=== PATIENT | male | born 1965 | race Caucasian/White ===

== ENCOUNTER 2025-02-03 18:36 | Emergency (ER) | payer BC, SELFPAY ==
--- NOTE | ~2025-02-03 | XR_ITS ---
CHEST RADIOGRAPH, PA AND LATERAL CLINICAL HISTORY: cough fever and wheezing x 3 days . COMPARISON: None available TECHNIQUE: PA and lateral views of the chest. FINDINGS The cardiomediastinal silhouette is unremarkable. Peribronchial thickening is identified. No focal infiltrate is noted. IMPRESSION: Peribronchial thickening, without focal infiltrate or effusion. Reviewed, dictated and finalized at location A.
[2025-02-03 19:02] VITALS: BP 107/60; PULSE 93; RESP 20; TEMP 37.9; O2SAT 96
--- NOTE | 2025-02-03 19:05 | ED.URI ---
HPI - URI/Sore Throat General Chief Complaint: Upper Respiratory Infection Stated Complaint: congestion / cough Time Seen by Provider: 02/03/25 19:05 Source: patient, RN notes reviewed and old records reviewed Mode of arrival: ambulatory Limitations: no limitations History of Present Illness HPI Narrative: 5-year-old male presents to the [facility] with cough, congestion, symptoms getting worse since Monday, 3 days. Has taken [place] cold and flu. Treatments prior to arrival: cold medicine Related Data Allergies Allergy/AdvReac Type Severity Reaction Status Date / Time Sulfa (Sulfonamide Allergy Mild Rash Verified 02/03/25 19:24 Antibiotics) Review of Systems Review of Systems: All systems reviewed & are unremarkable except as noted in HPI and below Constitutional: Constitutional: Reports as per HPI, Reports body ache(s), Reports fatigue and Reports fever(s) ENT: Reports system reviewed and no additional complaints, except as documented Cardiovascular: Cardiovascular: Reports no additional cardiovascular complaints, Denies chest pain and Denies dyspnea Respiratory: Respiratory: Reports as per HPI, Reports chest congestion, Reports cough and Denies dyspnea Musculoskeletal: Musculoskeletal: Reports no additional musculoskeletal complaints Integumentary/Breasts: Skin/Breast: Reports system reviewed and no additional complaints, except as docu PMFSH Comments At the time of my signature, I reviewed and agree with the nursing past medical, surgical, social, and family history. There is no relevant family history pertinent to the patient complaint. Exam Const: General: cooperative, healthy appearing, comfortable, no acute distress, well developed, alert and well nourished Nutritional Appearance: well nourished Orientation/consciousness: patient oriented x3 Limitations: no limitations HENMT: Head: normal to inspection Ears: hearing grossly normal bilaterally, external ears normal, TM's normal bilaterally, EAC's normal, mastoids normal and no periauricular adenopathy Mouth: Yes Normal oral and palatal mucosa present, Yes lip normal, Yes tongue normal and Yes moist mucous membranes Throat: posterior oropharynx normal, uvula midline and no uvular edema Eyes: General: appearance normal, both eyes and all related structures Alignment and Position: alignment normal Neck: Neck: normal visual inspection, full ROM, no lymphadenopathy and no meningeal signs Chest: Chest palpation & inspection: normal inspection of the chest Resp: Effort & Inspection: normal respiratory effort and able to speak in complete sentences Auscultation: no crackles, no rales, no rhonchi and wheezes expiratory wheezes and left lower Cardio: Rate: regular rate Skin: General skin exam: normal color and no rashes or lesions noted Neuro: General: patient oriented x3, gait normal, moves all extremities and no meningeal signs Cognition (Neuro): normal cognition Speech: normal speech Gait exam (Neuro): Normal gait present Extrem: General: normal to inspection, full ROM, capillary refill normal and normal gait Psych: Appearance: grossly normal and well kempt Mental Status: mental status grossly normal Speech and movement: Normal speech and movement present and Clear speech present Affect: normal affect Attitude: cooperative Course Course Level of Care: Express Care Visit Vital Signs Vital signs: Vital Signs Temperature 100.2 F H 02/03/25 19:02 Pulse Rate 93 02/03/25 19:02 Respiratory Rate 20 02/03/25 19:02 Blood Pressure 107/60 02/03/25 19:02 Pulse Oximetry 96 02/03/25 19:02 Oxygen Delivery Room Air 02/03/25 19:02 Temperature 100.2 F H 02/03/25 19:02 Pulse Rate 93 02/03/25 19:02 Respiratory Rate 20 02/03/25 19:02 Blood Pressure 107/60 02/03/25 19:02 Pulse Oximetry 96 02/03/25 19:02 Oxygen Delivery Room Air 02/03/25 19:02 Reviewed MDM - URI/Sore Throat MDM Narrative Medical decision making narrative: Patient sitting in exam room, nontoxic. Patient has a a low-grade fever. Otherwise vitals stable. Patient presents with 3 day history of cough, congestion. Flu A positive, COVID and chest x-ray negative. Patient appropriate for outpatient treatment and follow-up Discharge instructions reviewed with patient, as well as provided in writing per nursing staff. The instructions also include specific and strict return/GO TO THE ER as well as f/u information. All questions have been answered, and the patient deny any further questions with discharge and discharge plan. Some parts of this dictation were generated by voice recognition software and may contain typographical and/or grammatical inaccuracies. Differential Diagnosis Differential diagnosis: Likely upper respiratory infection, otitis media, sinusitis, viral infection, bronchitis and influenza Lab Data Labs: Lab Results 02/03/25 Range/Units 19:28 POC Influenza A Ag Positive (Negative) POC Influenza B Ag Negative (Negative) POC SARS CoV-2 Ag Negative (Negative) Reviewed reviewed Imaging Data Radiologist's impression: CHEST RADIOGRAPH, PA AND LATERAL CLINICAL HISTORY: cough fever and wheezing x 3 days . COMPARISON: None available TECHNIQUE: PA and lateral views of the chest. FINDINGS The cardiomediastinal silhouette is unremarkable. Peribronchial thickening is identified. No focal infiltrate is noted. IMPRESSION: Peribronchial thickening, without focal infiltrate or effusion. Critical Care Time Critical Care Time Critical Care Time: No Discharge Plan Discharge Clinical Impression: Influenza A Patient Disposition: Home, Self-Care Condition: Stable Instructions: Antibiotic Form, Influenza (DC) Additional Instructions: Your rapid COVID test were negative Your rapid flu test was positive for influenza A Your x-ray showed no signs of pneumonia Your symptoms are likely due to a viral illness, which is not treated with antibiotics. Typically viral infections last 7-10 days, can linger for couple of weeks. It is very important to treat your symptoms. Drink plenty of water, Gatorade, Pedialyte, ice pops or Jell-O. -Alternate Tylenol and Motrin per package directions for fever or pain. You can alternate every 4 hours -Antihistamine medication such as Zyrtec/Claritin/Kate during the day can help improve symptoms. -doing daily nasal irrigations can help relieve pressure your sinuses. Things like a Neti pot -Use Flonase twice a day for 5 days then daily to help reduce the inflammation and dry up your sinuses. -You can also use Mucinex. Be sure to drink plenty of water with this medication at least 8 ounces with every dose and it is important to drink 8 to 10 glasses of water per day. Water is a natural decongestant -Eat and drink things that are easy to swallow, like tea or soup, or popsicles. -Oral rinses such as: Salt water gargles and/or may use topical anesthetic (eg. Chloraseptic spray) or lozenges to relieve dryness or throat pain). -Frequent hand washing or hand director of strategic alliances is one of the best ways to prevent spread of infection. -Using a vaporizer or humidifier at night will also help thin secretions and help with coughing up phlegm. -Follow up with primary care provider in 7-10 days if condition is not improving - For new or worsening symptoms go directly to the nearest ER Patient Language: Georgian Prescriptions: New albuterol sulfate 90 mcg/actuation HFA aerosol inhaler 2 puff inhalation QID PRN (Reason: shortness of breath or wheezing) Qty: 6.7 0RF (DME) Aerochamber MV Spacer See Rx Instructions .Route Qty: 1 0RF Rx Instructions: As directed Follow-up/Referrals: Jose Raul Alfredo MD [Primary Care Provider] - Stand Alone Forms: Work/School Release IP Time of Disposition: 19:40
--- OUTSIDE RECORDS SUMMARY | 2025-02-03 19:20 | XMS_ITS | Referral Summary ---
Author Organization [facility] [address] Address [address] [place] [address] Care Team Providers Care Seo Marketing Specialist Name Role Phone Amara Corrigan MD Primary Care Provider [phone] Allergies Active Allergy Reactions Criticality Noted Date Comments Sulfa (Sulfonamide Antibiotics) Medications aspirin 81 mg tablet Take 1 tablet (81 mg total) by mouth 3 (three) times a week Active raNITIdine (ZANTAC) 150 mg tablet Take 1 tablet (150 mg total) by mouth nightly Active varenicline tartrate (CHANTIX) 1 mg tabletIndicatio ns:Smoking Cessation Take 1 tablet (1 mg total) by mouth 2 (two) times a day Take with full glass of water. 60 tablet 3 05/24/2023 Active multivitamin tabletIndicatio ns:Vitamin Deficiency Prevention Take 1 tablet by mouth Active cholecalciferol (VITAMIN D-3) 15990 unit tablet Take 1 tablet (10,000 Units total) by mouth daily Active buPROPion SR (ZYBAN) 150 mg 12 hr tablet Take 1 tablet (150 mg total) by mouth 2 (two) times a day 60 tablet 3 05/29/2024 Active ezetimibe (ZETIA) 10 mg tablet Take 1 tablet by mouth once daily 90 tablet 2 09/10/2024 Active lisinopriL (PRINIVIL,ZESTR IL) 40 mg tablet Take 1 tablet by mouth once daily 90 tablet 1 12/25/2024 Active rosuvastatin (CRESTOR) 40 mg tablet Take 1 tablet by mouth once daily 90 tablet 1 12/25/2024 Active Active Problems Problem Noted Date Diagnosed Date Coronary artery disease invo lving [place] coronary artery without angina pectoris 10/24/2018 Overview (10/24/2018): Patient had PCI/HARI x1 of mid LAD on 04/06/2010 by at [facility] in the setting of non ST elevation [place] Immunizations Immunization Administration Dates Next Due Influenza, Unspecified 08/20/2018 Social History Tobacco Use Types Packs/Day Years Used Date Smoking Tobacco: Every Day Cigarettes 0 Smokeless Tobacco: Never Tobacco Cessation:Ready to Q uit: Not Asked; Counseling Given: Not Answered Alcohol Use Standard Drinks/Week Comments No 0 (1 standard drink = 0.6 oz pur e alcohol) PHQ-2 Answer Date Recorded PHQ-2 Score 0 07/10/2019 Sex and Gender Information Value Date Recorded Sex Assigned at Not on file 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 Gender Identity Not on file Sexual Orientation Not on file Last Filed Vital Signs Vital Sign Reading Time Taken Comments Blood Pressure 120/70 05/29/2024 8:45 AM CDT Pulse 68 05/29/2024 8:45 AM CDT Temperature 37 C (98.6 F) 03/25/2019 2:50 PM CDT Respiratory Rate 16 03/25/2019 2:50 PM CDT Oxygen Saturation 97% 05/29/2024 8:45 AM CDT Inhaled Oxygen Concentration - - Weight 80.8 kg (178 lb 1.6 oz) 05/29/2024 8:45 A M CDT Height 180.3 cm (5' 11 ) 05/29/2024 8:45 AM CDT Body Mass Index 24.84 05/29/2024 8:45 AM CDT Plan of Treatment Not on file Insurance [place] [employer] [place] [employer] Care Teams Seo Marketing Specialist Relationship Specialty Start Date End Date Amara Corrigan MD [address] [address] PCP - General 10/02/12
--- OUTSIDE RECORDS SUMMARY | 2025-02-03 19:20 | XMS_ITS | Clinical Summary ---
Author Organization [facility] [place] [place] [address] Address [address] [place] [address] Care Team Providers Care Tankroom Worker Name Role Phone Amara Corrigan MD Primary Care Provider [phone] Allergies Active Allergy Reactions Criticality Noted Date [...] tablet by mouth Active cholecalciferol (VITAMIN D-3) 55684 unit tablet Take 1 tablet (10,000 Units [...] Diagnosed Date Coronary artery disease invo lving [place] coronary artery without angina pectoris 10/24/2018 Overview (10/24/2018): Patient had PCI/HARI x1 of mid LAD on 04/06/2010 by at [facility] in the setting of non ST elevation [place] Immunizations Immunization Administration Dates Next Due Influenza, Unspecified 08/20/2018 Surgical History Surgery Date Site/Laterality Comments OTHER SURGICAL HISTORY 11/20/2009 - 11/19/2010 cad: stent ANGIOPLASTY 03/20/2010 - 04/19/2010 VASECTOMY 11/20/2000 - 11/19/2001 Medical History Medical History Date Comments Hx Other Medical cad CAD (coronary artery disease) Heart disease 03/2010 Family History Medical History Relation Name Comments COPD Father Samuel Carreon Coronary artery disease Father Samuel Carreon Coronary artery disease; Cancer Mother Nati Carreon Stroke Mother Nati Carreon Relation Name Status Comments Father Samuel Carreon Mother Nati Carreon Social History Tobacco Use Types Packs/Day Years [...] on file 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 Gender Identity Not on file Sexual Orientation Not on file Obstetrics History Last Filed Vital Signs Vital Sign Reading [...] 05/29/2024 8:45 AM CDT Plan of Treatment Health Maintenance Due Date Last Done Comments Colon Cancer Screening-Colonoscopy 1964 Hepatitis C Screening 1964 Prostate Cancer Screening-PSA 1964 DTaP/Tdap/Td Vaccine (1 - Tdap) 1975 Hepatitis B Screening 1982 Pneumococcal vaccine <65 (1 of 2 - PCV) 1983 Zoster Vaccine (1 of 2) 2014 Depression Screening 10/24/2019 10/24/2018 Regular Well Visit/Exam 18-64 10/24/2019 10/24/2018 Covid-19 Vaccine ( season) 2024, 02/15/2021 Influenza Vaccine (#1) 2024 09/29/2020, 2017 Insurance [employer] O[employer] O[employer] Care Teams Tankroom Worker Relationship Specialty Start Date End Date Amara Corrigan MD [address] [address] PCP - General 10/02/12
[2025-02-03 19:29] LABS: EDCOVIDSCREEN Negative (Negative); EDINFLUASCREEN Positive (Negative); EDINFLUBSCREEN Negative (Negative)
== END 2025-02-03 19:44 | disposition home or self-care (01) ==
PROVIDERS: Emergency Provider Nurse Practitioner
DX: J10.1 Influenza due to other identified influenza virus with other respiratory manifestations (principal); Z20.822 Contact with and (suspected) exposure to COVID-19; Z95.5 Presence of coronary angioplasty implant and graft
CPT/HCPCS: 71046; 87426; 87804; 99203; G0463